=== PATIENT | female | born 1950 | race American Indian/Alaskan Native ===

== ENCOUNTER 2019-05-11 20:09 | Emergency (ER) | payer OTHER ==
[2019-05-11 20:19] VITALS: BP 163/70
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
--- NOTE | 2019-05-11 21:37 | XRay Report ---
Cervical spine-3 views INDICATION: nekc pain. COMPARISON: None. IMPRESSION: 2 mm of anterolisthesis of C6 on C7. Otherwise normal alignment. Moderate multilevel di scogenic DJD. No acute osseous or soft tissue abnormality. Signer Name: Devyn Winter MD Signed: 05/11/2019 9:33 PM Workstation Name: [id number]
[2019-05-11] MEDS ORDERED: dexAMETHasone 4 MG/ML VIAL IM ONE (23:40)
[2019-05-11] MEDS ORDERED: KETOROLAC 30 MG/1 ML INJ IM ONE (23:40)
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
== END 2019-05-12 00:30 | disposition home or self-care (01) ==
LOC: ED 20:09
DX: S16.1XXA Strain of muscle, fascia and tendon at neck level, initial encounter (principal); V89.2XXA Person injured in unspecified motor-vehicle accident, traffic, initial encounter; Y93.89 Activity, other specified; Y92.410 Unspecified street and highway as the place of occurrence of the external cause; Y99.8 Other external cause status
CPT/HCPCS: 72040; 96372; 99283; J1100; J1885